=== PATIENT | female | born 1945 | race Caucasian/White ===

== ENCOUNTER 2019-07-08 05:44 | Inpatient (IN) | payer OTHER ==
[2019-06-29 17:33] VITALS: BMI 21.0
[~2019-07-08 05:44] MED LIST: oxyCODONE HCL 10 MG SUSTAINED ACTING TABLET PO ONE
[2019-07-08] MEDS ORDERED: MIDAZOLAM HCL 2 MG/2 ML SINGLE DOSE VIAL ONE ×2 (07:03→07:06)
[2019-07-08] MEDS ORDERED: BUPIVACAINE LIPOSOME/PF (EXPAREL) 266 MG/20 ML VIAL ONE (07:03)
[2019-07-08] MEDS ORDERED: oxyCODONE HCL 10 MG SUSTAINED ACTING TABLET ONE (07:04)
[2019-07-08] MEDS ORDERED: ePHEDrine SULFATE 50 MG/1 ML AMPULE ONE (07:05)
[2019-07-08] MEDS ORDERED: PROPOFOL 20 ML ONE ×4 (07:06→09:17)
[2019-07-08] MEDS ORDERED: ROCURONIUM BROMIDE 50 MG/5 ML SYRINGE ONE (07:06)
[2019-07-08] MEDS ORDERED: SUCCINYLCHOLINE CHLORIDE 200 MG/10 ML SYRINGE ONE (07:06)
[2019-07-08] MEDS ORDERED: ONDANSETRON 4 MG/2 ML VIAL ONE (07:07)
[2019-07-08] MEDS ORDERED: PHENYLEPHRINE HCL 10 MG/1 ML SINGLE DOSE VIAL ONE (07:07)
[2019-07-08] MEDS ORDERED: DEXAMETHASONE SOD PHOSPHATE 4 MG/1 ML VIAL ONE (07:07)
[2019-07-08] MEDS ORDERED: LIDOCAINE HCL/PF 2% SDV 5ML VIAL ONE (07:07)
[2019-07-08] MEDS ORDERED: ceFAZolin SODIUM 1 GM VIAL ONE (07:07)
[2019-07-08] MEDS ORDERED: VANCOMYCIN 1,000 MG VIAL (RESTRICTED TO ID ONLY) ONE (07:07)
[2019-07-08] MEDS ORDERED: SODIUM CHLORIDE 0.9% P/F 10 ML VIAL IJ ONE (07:09)
--- NOTE | 2019-07-08 07:39 | HP ---
History & Physical Update - History History: No Change - Physical Physical: No Change - Assessment Assessment: No Change - Plan Plan: No Change
[2019-07-08] MEDS ORDERED: VANCOMYCIN 750 MG in DEXTROSE 5%-WATER - 250 ML IVPB ONE (08:00)
[2019-07-08] MEDS ORDERED: CEFAZOLIN 1 GM in DEXTROSE 5%-WATER - 100 ML IVPB ONE (08:00)
[2019-07-08] MEDS ORDERED: TRANEXAMIC ACID 1000 MG/10 ML VIAL IVPUSH ONE (08:00)
[2019-07-08] MEDS ORDERED: ceFAZolin SODIUM 1 GM VIAL IM ONE (08:43)
[2019-07-08] MEDS ORDERED: traMADol HCL 50 MG TABLET PO PRN (08:51)
[2019-07-08] MEDS ORDERED: HYDROmorphone HCL 2 MG TABLET PO PRN (08:52)
[2019-07-08] MEDS ORDERED: ACETAMINOPHEN 325 MG TABLET (FP) PO SCH (09:00)
[2019-07-08] MEDS ORDERED: BENZOIN/ALOE VERA/STORAX/TOLU 58 ML BOTTLE ONE (10:30)
[2019-07-08] MEDS ORDERED: MAGNESIUM HYDROX 2400MG/30ML ORAL SUSPENSION 30 ML CUP PO PRN (10:57)
[2019-07-08] MEDS ORDERED: MAG HYDROX/AL HYDROX/SIMETH 30 ML UNIT-DOSE CUP PO PRN (10:57)
[2019-07-08] MEDS ORDERED: LACTATED RINGERS SOLUTION 1,000 ML IV SCH (11:00)
--- NOTE | 2019-07-08 11:05 | OP ---
Operative Note - Note: Operative Date: 07/08/19 Pre-Operative Diagnosis: left knee osteoarthritis Operation: s/p Left total knee replacement Surgeon: Rashi Guillen Band Splitter: Pamela Mora Anesthesiologist/RAIL OPERATIONS CONTROLLER: Kartik Tafoya Anesthesia: Spinal Estimated Blood Loss (mls): 50 Fluid Volume Replaced (mls): 1,300 Operative Report Dictated: Yes
[2019-07-08] MEDS ORDERED: ACETAMINOPHEN 325 MG TABLET (FP) ONE (12:00)
--- NOTE | 2019-07-08 12:22 | HP ---
HISTORY OF PRESENT ILLNESS: 74 year-old female with a PMH significant for HTN, HLD, mild intermittent asthma /COPD, lung cancer s/p RUL lobectomy, sarcoidosis, DDD, and left knee osteoarthritis s/p left total knee replacement on 07/08/[address] Rashi Guillen. PAST MEDICAL HISTORY: Hypertension Hyperlipidemia Mild intermittent asthma COPD Lung cancer Sarcoidosis Degenerative disc disease, cervical, lumbar Spinal stenosis, lumbar Depression/anxiety PAST SURGICAL HISTORY: RUL lobectomy 2013 Social History: Smoking: former Alcohol: no Drugs: no Allergies No Known Drug Allergies Allergy (Verified 07/08/19 06:45) HOME MEDICATIONS: Home Medications Medication Instructions Recorded Escitalopram Oxalate [Lexapro -] 20 mg PO DAILY 06/29/19 Mometasone Furoate 34 gm NS DAILY 06/29/19 Multivit-Min/FA/Lycopen/Lutein 1 each PO DAILY 06/29/19 [Centrum Silver Tablet] Omeprazole 20 mg PO DAILY 06/29/19 Rosuvastatin Calcium [Crestor] 20 mg PO HS 06/29/19 REVIEW OF SYSTEMS CONSTITUTIONAL: Absent: fever, chills, diaphoresis, generalized weakness, malaise, loss of appetite, weight change HEENT: Absent: rhinorrhea, nasal congestion, throat pain, throat swelling, difficulty swallowing, mouth swelling, ear pain, eye pain, visual changes CARDIOVASCULAR: Absent: chest pain, syncope, palpitations, irregular heart rate, lightheadedness , peripheral edema RESPIRATORY: Absent: cough, shortness of breath, dyspnea with exertion, orthopnea, wheezing, stridor, hemoptysis GASTROINTESTINAL: Absent: abdominal pain, abdominal distension, nausea, vomiting, diarrhea, constipation, melena, hematochezia GENITOURINARY: Absent: dysuria, frequency, urgency, hesitancy, hematuria, flank pain, genital pain MUSCULOSKELETAL: Absent: myalgia, arthralgia, joint swelling, back pain, neck pain SKIN: Absent: rash, itching, pallor HEMATOLOGIC/IMMUNOLOGIC: Absent: easy bleeding, easy bruising, lymphadenopathy, frequent infections ENDOCRINE: Absent: unexplained weight gain, unexplained weight loss, heat intolerance, cold intolerance NEUROLOGIC: Absent: headache, focal weakness or paresthesias, dizziness, unsteady gait, seizure, mental status changes, bladder or bowel incontinence PSYCHIATRIC: Absent: anxiety, depression, suicidal or homicidal ideation, hallucinations. PHYSICAL EXAMINATION Vital Signs - 24 hr 07/08/19 07/08/19 07/08/19 06:30 11:15 11:20 Temperature 98.1 F 97.5 F L Pulse Rate 56 L 58 L 60 Respiratory 18 18 14 Rate Blood Pressure 139/66 137/53 L 135/49 L O2 Sat by Pulse 97 100 100 Oximetry (%) 07/08/19 07/08/19 07/08/19 11:25 11:30 11:45 Temperature 97.5 F L Pulse Rate 56 L 56 L 55 L Respiratory 14 14 13 Rate Blood Pressure 134/48 L 134/48 L 144/48 L O2 Sat by Pulse 100 100 100 Oximetry (%) 07/08/19 07/08/19 12:00 12:10 Temperature Pulse Rate 56 L 55 L Respiratory 13 13 Rate Blood Pressure 143/76 144/48 L O2 Sat by Pulse 100 100 Oximetry (%) GENERAL: Awake, alert, and fully oriented, in no acute distress. HEAD: Normal with no signs of trauma. EYES: Pupils equal, round and reactive to light, extraocular movements intact, sclera anicteric, conjunctiva clear. No lid lag. EARS, NOSE, THROAT: Ears normal, nares patent, oropharynx clear without exudates. Moist mucous membranes. NECK: Normal range of motion, supple without lymphadenopathy, JVD, or masses. LUNGS: Breath sounds equal, clear to auscultation bilaterally. No wheezes, and no crackles. No accessory muscle use. HEART: Regular rate and rhythm, normal S1 and S2 without murmur, rub or gallop. ABDOMEN: Soft, nontender, not distended, normoactive bowel sounds, no guarding, no rebound, no masses. No hepatomegaly or splenomegaly. MUSCULOSKELETAL: Normal range of motion at all joints. No bony deformities or tenderness. No CVA tenderness. UPPER EXTREMITIES: 2+ pulses, warm, well-perfused. No cyanosis. No clubbing. No peripheral edema. LEFT LOWER EXTREMITY: surgical dressing c/d/i; leg immobilized; SCDs, TEDs, ice terence; can flex/extend toes, sensory intact NEUROLOGICAL: Cranial nerves II-XII intact. Normal speech. ASSESSMENT/PLAN 74 year-old female with a PMH significant for HTN, HLD, mild intermittent asthma /COPD, lung cancer s/p RUL lobectomy, sarcoidosis, DDD, and left knee osteoarthritis s/p left total knee replacement on 07/08/[address] Rashi Guillen. Left total knee replacement --POD #0 --perioperative antibiotics per surgery --pain management per surgery --ASA 81mg BID --protonix --bowel regimen --incentive spirometry --Hemovac drain, monitor output Hypertension --not on anti-hypertensives Hyperlipidemia --continue rosuvastatin Mild intermittent asthma COPD Lung cancer s/p RUL lobectomy --stable, no acute issues --not on pulmonary medication at home --duonebs PRN Sarcoidosis --no acute issues FEN Fluids: LR@125mL/hr Electrolytes: replete as indicated Nutrition: regular diet DVT prophylaxis: OOB, ambulation, SCDs, TEDs, ASA 81mg BID Physical therapy Dispo: continues to require inpatient care. Full code. Visit type - Emergency Visit Emergency Visit: No - New Patient This patient is new to me today: Yes Date on this admission: 07/20/19 - Critical Care Critical Care patient: No
[2019-07-08] MEDS ORDERED: HYDROmorphone HCL CARPU-JECT 1 MG/1 ML DISP.SYRIN ONE (15:18)
[2019-07-08] MEDS ORDERED: ALBUTEROL SO4 2.5/IPRATROPIUM 0.5 INH SOL 3 ML VIAL.NEB. NEB PRN (17:52)
[2019-07-08] MEDS: ACETAMINOPHEN 325 MG TABLET (FP) PO SCH (18:12)
[2019-07-08] MEDS: CEFAZOLIN 1 GM/D5W 1 GM/50 ML BAG IVPB SCH (18:13)
[2019-07-08] MEDS ORDERED: ACETAMINOPHEN 1000 MG/100 ML VIAL (NON FORMULARY) IVPB ONE (20:11)
[2019-07-08] MEDS ORDERED: KETOROLAC TROMETHAMINE 30 MG/1 ML VIAL IVPUSH ONE (20:11)
[2019-07-08] MEDS: SENNOSIDES/DOCUSATE COMBO (SENNA PLUS) TABLET (UD) PO SCH (21:14)
[2019-07-08] MEDS: DOCUSATE SODIUM 100 MG CAPSULE (FP) PO SCH (21:14)
[2019-07-08] MEDS: ROSUVASTATIN CA 20 MG TABLET (FP) PO SCH (21:14)
[2019-07-08] MEDS: ASPIRIN 81 MG CHEWABLE TABLETS PO SCH (21:14)
[2019-07-09] MEDS: CEFAZOLIN 1 GM/D5W 1 GM/50 ML BAG IVPB SCH (02:30)
[2019-07-09] MEDS: ACETAMINOPHEN 325 MG TABLET (FP) PO SCH ×2 (06:04)
[2019-07-09 07:34] LABS: HEMATOCRIT 33.5 % (32.4-45.2); MCH 29.1 pg (25.7-33.7); MCHC 32.8 g/dl (32.0-36.0); MEAN CELL VOLUME 88.7 fl (80-96); MEAN PLT VOLUME 9.6 fl (7.5-11.1); PLATELET COUNT 219 K/MM3 (134-434); RBC 3.77 M/mm3 (3.60-5.2); WHITE BLOOD COUNT 9.3 K/mm3 (4.0-10.8)
[2019-07-09 07:40] LABS: CALCIUM 8.4 mg/dl (8.5-10); CREATININE 0.9 mg/dl (0.55-1.3); MAGNESIUM 1.7 mg/dL (1.8-2.4); POTASSIUM 4.2 mmol/L (3.5-5.1)
[2019-07-09] MEDS ORDERED: HYDROmorphone HCL 2 MG TABLET PO PRN (07:59)
[2019-07-09] MEDS ORDERED: traMADol HCL 50 MG TABLET PO PRN (08:00)
[2019-07-09] MEDS ORDERED: KETOROLAC TROMETHAMINE 15 MG/ML VIAL IVPUSH PRN (08:00)
[2019-07-09] MEDS: ONDANSETRON 4 MG/2 ML VIAL IVPUSH PRN ×2 (08:22→13:57)
--- NOTE | 2019-07-09 08:27 | PN ---
Physical Exam: SUBJECTIVE: Patient seen and examined OBJECTIVE: Vital Signs Period Temp Pulse Resp BP Sys/Díaz Pulse Ox Last 24 Hr 97.5 F-98.9 F 55-78 13-19 110-150/48-76 95-100 GENERAL: Lethagic, somnolent but arousable LUNGS: Breath sounds equal, clear to auscultation bilaterally. No wheezes, and no crackles. No accessory muscle use. HEART: Regular rate and rhythm, normal S1 and S2 ABDOMEN: Soft, nontender, not distended UPPER EXTREMITIES: 2+ pulses, warm, well-perfused. No cyanosis. No clubbing. No peripheral edema. LEFT LOWER EXTREMITY: surgical dressing c/d/i; leg immobilized; SCDs, TEDs, ice terence; can flex/extend toes, sensory intact NEUROLOGICAL: Cranial nerves II-XII intact. Normal speech. Laboratory Results - last 24 hr 07/09/19 07/09/19 06:36 06:36 WBC 9.3 RBC 3.77 Hgb 11.0 Hct 33.5 MCV 88.7 MCH 29.1 MCHC 32.8 RDW 14.0 Plt Count 219 MPV 9.6 Sodium 135 L Potassium 4.2 Chloride 102 Carbon Dioxide 25 Anion Gap 8 BUN 12.0 Creatinine 0.9 Est GFR (CKD-EPI)AfAm 73.00 Est GFR (CKD-EPI)NonAf 62.99 Random Glucose 118 H Calcium 8.4 L Magnesium 1.7 L Active Medications Generic Name Dose Route Start Last Admin Trade Name Freq PRN Reason Stop Dose Admin Acetaminophen 1,000 mg 07/09/19 12:00 Tylenol - PO 07/10/19 11:59 Q6H ZIGGY Al Hydroxide/Mg Hydroxide 30 ml 07/08/19 10:57 Mylanta Oral Suspension - PO Q4H PRN DYSPEPSIA Albuterol/Ipratropium 1 amp 07/08/19 17:52 Duoneb - NEB Q6H PRN SHORTNESS OF BREATH Aspirin 81 mg 07/08/19 22:00 07/08/19 21:14 Asa - PO 81 mg BID ZIGGY Administration Docusate Sodium 100 mg 07/08/19 10:00 07/08/19 21:14 Colace - PO 100 mg BID ZIGGY Administration Escitalopram Oxalate 20 mg 07/09/19 10:00 Lexapro - PO DAILY ZIGGY Fluticasone Propionate 1 spray 07/09/19 10:00 Flonase - NS DAILY [facility] Hydromorphone HCl 2 mg 07/09/19 07:59 Dilaudid - PO Q4H PRN PAIN LEVEL 6-10 Lactated Ringer's 1,000 mls @ 125 mls/hr 07/08/19 09:00 Lactated Ringers Solution IV ASDIR [facility] Ketorolac Tromethamine 15 mg 07/09/19 08:00 Toradol Injection - IVPUSH 07/14/19 09:59 BID PRN PAIN LEVEL 1-5 Magnesium Hydroxide 30 ml 07/08/19 10:57 Milk Of Magnesia - PO PRN PRN CONSTIPATION Multivitamins/Minerals/Vitamin C 1 tab 07/09/19 10:00 Tab-A-Vit - PO DAILY [facility] Ondansetron HCl 4 mg 07/08/19 10:57 07/09/19 08:22 Zofran Injection IVPUSH 4 mg Q6H PRN Administration NAUSEA Pantoprazole Sodium 40 mg 07/09/19 10:00 Protonix - PO DAILY [facility] Rosuvastatin Calcium 20 mg 07/08/19 22:00 07/08/19 21:14 Crestor - PO 20 mg HS [facility] Administration Senna/Docusate Sodium 2 tablet 07/08/19 22:00 07/08/19 21:14 Pericolace - PO 2 tablet BID ZIGGY Administration Tramadol HCl 50 mg 07/09/19 08:00 Ultram - PO Q3H PRN PAIN LEVEL 1-5 ASSESSMENT/PLAN: 74 year-old female with a PMH significant for HTN, HLD, mild intermittent asthma /COPD, lung cancer s/p RUL lobectomy, sarcoidosis, DDD, and left knee osteoarthritis s/p left total knee replacement on 07/08/[address] Rashi Guillen. Left total knee replacement --POD #0 --perioperative antibiotics per surgery --appears to be overmedicated, somnolent, lethargic, nauseous; stop all opiods, Tylenol and ketorolac only for pain --ASA 81mg BID --protonix --bowel regimen --incentive spirometry --Hemovac drain, monitor output Hypertension --not on anti-hypertensives Hyperlipidemia --continue rosuvastatin Mild intermittent asthma COPD Lung cancer s/p RUL lobectomy --stable, no acute issues --not on pulmonary medication at home --duonebs PRN Sarcoidosis --no acute issues FEN Fluids: PO intake adequate Electrolytes: replete as indicated Nutrition: nauseous, vomiting; keep NPO except for meds and ice chips DVT prophylaxis: OOB, ambulation, SCDs, TEDs, ASA 81mg BID Physical therapy Dispo: continues to require inpatient care. Full code. Visit type - Emergency Visit Emergency Visit: No - New Patient This patient is new to me today: No - Critical Care Critical Care patient: No
--- NOTE | 2019-07-09 08:58 | OP ---
DATE OF OPERATION: DATE OF DICTATION: 07/08/2019 SURGEON: Rashi Guillen MD IMPOSER: MITUL Titus PREOPERATIVE DIAGNOSIS: Tricompartmental with fixed valgus osteoarthritis, left knee. POSTOPERATIVE DIAGNOSIS: Tricompartmental with fixed valgus osteoarthritis, left knee. OPERATION PERFORMED: Left posterior-stabilized cemented total knee replacement ([place]). ANESTHESIA: Conscious sedation with spinal anesthesia as well as a peripheral nerve block. ANTIBIOTICS GIVEN: Ancef 2 g; at the end of the procedure, another gram of Ancef was given. DESCRIPTION OF PROCEDURE: The patient was correctly identified and brought to the operating room. A time-out was called. The patient was placed supine on the operating table. The left lower extremity was prepped and draped in the routine manner with Betadine scrub solution, wiped off with alcohol, and DuraPrep applied. A midline incision was utilized. Dissection was taken through the skin and subcutaneous tissues to the fascia. The fascia was opening by opening the epimysium of the vastus medialis, creating a plane between the vastus medialis all the way down to the linea aspera medially. Incision along the proximal tibia was performed using a Bovie and subperiosteal dissection of the proximal tibia performed to expose the entire medial side of the soft tissue/retinaculum, freeing the vastus medialis appropriately. This enabled a plane to be developed between the muscle and the bone above the suprapatellar pouch. The suprapatellar pouch was incised, and the soft tissue on the surface of the distal femur was resected using a Bovie. The patella was laterally mobilized, not capsized but subluxed. This gave easy access to knee completely. The noticeable tricompartmental osteoarthritis was readily noted. Using the [email or web address] instrumentation, the appropriate cuts were as follows: Femur with the appropriate jig system measured size 2. Use of the tibial extramedullary alignment jigs enabled me to cut the base of the tibia for a size 3 baseplate, and an additional 12 x 50 stem applied to the actual manufactured stem accordingly. The patella was cut from Whitesides line from the patellar ligament to quadriceps tendon to receive a size 27-mm polyethylene button. In performing all the appropriate jig cuts, the kinematics were restored, with a flexion/extension gap tat was even at about 9 mm. Tension in extension and flexion were normal at 9 mm. Trial components were utilized to assess the appropriate seating of implants. The mechanical axis was restored. The knee was brought into full extension with a 9-mm polyethylene liner, and the entire tibial surface was covered. The femoral components seated enabled excellent articulation with appropriate patellar tracking and noted to be normal. We were happy with this in terms of alignment and kinematics. Went on to lavage the bone bed with pulse lavage and cemented using 1-stage. Once all cement had cured, all extraneous cement was removed. The knee was placed through a range of movement, which was normal, that is 0 to 120 to 130 degrees and complete stability in the coronal and sagittal planes, as well as a negative shock test. Drains: A 1/8-inch Hemovac was brought out through the subvastus bed. The subcutaneous tissues with the retinaculum in separate layers were closed with 1 Vicryl, and the skin with 3-0 Monocryl and Steri-Strips. The operation went well. The patient had no complications. Postop x-rays were excellent. The patient was extricated out of the operating complex with no problems. MD LAURIE Bazan/[id number]
--- NOTE | 2019-07-09 09:19 | PN ---
Progress Note (short form) - Note Progress Note: POD#1 Pt states that she is having some nausea this am. NO CP or SOB. Had pain overnight and was treated with dilaudid po. The drain was leaking overnight. Vital Signs Period Temp Pulse Resp BP Sys/Díaz Pulse Ox Last 24 Hr 97.5 F-98.9 F 55-78 13-19 110-150/48-76 95-100 Hemovac:40/60ml serosangrenous GEN: A&0x3, NAD CV: RRR Lungs: CTA b/l Left knee: dressing taken down and blood at the hemovac insertion site. No evidence of a hematoma and thigh/calf is soft. Hemovac removed with the tip intact, no further bleeding noted. 4x4 gauze and tegaderm applied and geovany wrap. LE: 5/5 dorsi/plantar flexion b/l. calf soft and no tenderness b/l. TEDs/Scds in place. CBC, BMP 02/06/20 06:36 02/06/20 06:36 A/P: 74 yo female s/p L TRK, POD#1 Changed pain regimen. Pt with nausea. increased stadning tylenol/added toradol prn. Ultram and dilaudid po as needed Continue DVT ppx OOB and ambuatle with PT DVT ppx with aspiring 81mg bid, ZINA/SCDs Zofran and diet as tolerated D/w Dr. Guillen
[2019-07-09] MEDS: PANTOPRAZOLE 40 MG TABLET PO SCH (09:47)
[2019-07-09] MEDS: MULTIVITAMINS (DAILY MVI) TABLET (FP) PO SCH (09:47)
[2019-07-09] MEDS: ESCITALOPRAM OXALATE 20 MG TABLET PO SCH ×2 (09:48→13:13)
[2019-07-09] MEDS: ASPIRIN 81 MG CHEWABLE TABLETS PO SCH ×2 (09:48→22:00)
[2019-07-09] MEDS: SENNOSIDES/DOCUSATE COMBO (SENNA PLUS) TABLET (UD) PO SCH ×2 (09:48→21:59)
[2019-07-09] MEDS: DOCUSATE SODIUM 100 MG CAPSULE (FP) PO SCH ×2 (09:48→21:59)
[2019-07-09] MEDS: FLUTICASONE PROP 0.05% 16 GM NASAL SPRAY NS SCH (09:49)
[2019-07-09] MEDS ORDERED: PT OWN MED DRAWER 7, Y5N ONE (09:51)
[2019-07-09] MEDS ORDERED: MOMETASONE FUROATE NS SCH (10:00)
[2019-07-09] MEDS: LACTATED RINGERS SOLUTION 1,000 ML IV SCH (10:00)
--- NOTE | 2019-07-09 11:27 | PN ---
Progress Note (short form) - Note Progress Note: POD #1 s/p L TKR under spinal anesthesia with adductor canal/selective tibial nerve blocks. Doing well, had some nausea overnight with pain Rx, now controlled. Patient comfortable and sleepy. All questions answered.
[2019-07-09] MEDS: ACETAMINOPHEN 500 MG TABLET (FP) PO SCH ×2 (11:53→13:46)
[2019-07-09] MEDS ORDERED: ACETAMINOPHEN 325 MG TABLET (FP) PO SCH (12:00)
[2019-07-09] MEDS ORDERED: SODIUM CHLORIDE 500 ML IV STA ×2 (12:24→12:58)
[2019-07-09] MEDS ORDERED: MAGNESIUM SULF 50% (8.12 MEQ/2 ML-1 GM VIAL) IVPB ONE (13:00)
[2019-07-09] MEDS ORDERED: MAGNESIUM SULFATE IN WATER 2 GM/50 ML IVPB IVPB ONE (13:15)
[2019-07-09] MEDS: ACETAMINOPHEN 1000 MG/100 ML VIAL (NON FORMULARY) IVPB SCH ×2 (15:51→22:00)
[2019-07-09] MEDS: ROSUVASTATIN CA 20 MG TABLET (FP) PO SCH (22:00)
[2019-07-10] MEDS: ACETAMINOPHEN 1000 MG/100 ML VIAL (NON FORMULARY) IVPB SCH ×2 (03:07→08:48)
[2019-07-10] MEDS: ONDANSETRON 4 MG/2 ML VIAL IVPUSH PRN (04:28)
--- NOTE | 2019-07-10 05:51 | SURG ---
Surgery Merchandise For Resale Purchasing Agent Note Merchandise For Res[employer] Purchasing Agent: Pamela Mora PA-C Date of Service: 07/10/19 Diagnosis: left knee osteoarthritis Procedure: s/p Left total knee replacement I was present for the entirety of the operative procedure. For further detail, please refer to operative report. Visit type - Case Type Case Type: Scheduled - Emergency Emergency Visit: No - New patient This patient is new to me today: Yes Date on this admission: 07/10/19
[2019-07-10 06:38] VITALS: TEMP 98.4
[2019-07-10] MEDS: DOCUSATE SODIUM 100 MG CAPSULE (FP) PO SCH ×2 (07:28→09:28)
[2019-07-10] MEDS: ACETAMINOPHEN 325 MG TABLET (FP) PO SCH (07:28)
[2019-07-10] MEDS: LACTATED RINGERS SOLUTION 1,000 ML IV SCH (07:28)
[2019-07-10 07:32] LABS: HEMOGLOBIN 10.1 GM/dl (10.7-15.3); MCHC 32.5 g/dl (32.0-36.0); MEAN CELL VOLUME 89.4 fl (80-96); MEAN PLT VOLUME 9.1 fl (7.5-11.1); PLATELET COUNT 222 K/MM3 (134-434); RBC 3.47 M/mm3 (3.60-5.2); RDW 13.8 % (11.6-15.6); WHITE BLOOD COUNT 12.9 K/mm3 (4.0-10.8)
--- NOTE | 2019-07-10 07:32 | PN ---
Progress Note (short form) - Note Progress Note: ORTHOPAEDIC SURGERY POD #2 No acue events per RN notes. Alert. Sitting in chair at bedside with legs in extension. Ice pack in place. C/o incisional pain Last Vital Signs Temp Pulse Resp BP Pulse Ox 98.4 F 93 H 18 138/59 L 100 07/10/19 05:00 07/10/19 05:00 07/10/19 05:00 07/10/19 05:00 07/10/19 05:00 CBC, BMP 07/10/19 07:00 07/09/19 06:36 GEN: A&0x3, NAD CV: RRR Lungs: CTA b/l Left knee: dressing c/d/i. No evidence of a hematoma. All compartments soft. SCDs/TEDs bilat. 5/5 dorsi/plantar flexion b/l. Problem List - Problems (1) Status post total left knee replacement using cement Assessment/Plan: POD #1 s/p Left TKR Continue DVT ppx OOB and ambuatle with PT DVT ppx with ASA 81mg bid x 6 weeks, ZINA/SCDs Cleared for DC home today Above plan discussed with Dr. Rashi Guillen and agrees. Code(s): Z96.652 - PRESENCE OF LEFT ARTIFICIAL KNEE JOINT
--- NOTE | 2019-07-10 09:07 | DS ---
"Physical Exam: SUBJECTIVE: Patient seen and examined. Off all narcotics for 24 hours, much more alert. Pain is well-controlled on Tyelenol. Nausea, vomiting resolved. OBJECTIVE: Vital Signs Period Temp Pulse Resp BP Sys/Díaz Pulse Ox Last 24 Hr 97.4 F-98.4 F 63-93 15-18 86-138/37-59 99-100 PHYSICAL EXAM GENERAL: A&Ox3 LUNGS: Breath sounds equal, clear to auscultation bilaterally. No wheezes, and no crackles. No accessory muscle use. HEART: Regular rate and rhythm, normal S1 and S2 ABDOMEN: Soft, nontender, not distended UPPER EXTREMITIES: 2+ pulses, warm, well-perfused. No cyanosis. No clubbing. No peripheral edema. LEFT LOWER EXTREMITY: surgical dressing c/d/i; SCDs, TEDs, can flex/extend toes , sensory intact NEUROLOGICAL: Cranial nerves II-XII intact. Normal speech. LABS Laboratory Results - last 24 hr 07/10/19 07:00 WBC 12.9 H RBC 3.47 L Hgb 10.1 L Hct 31.0 L MCV 89.4 MCH 29.0 MCHC 32.5 RDW 13.8 Plt Count 222 MPV 9.1 HOSPITAL COURSE: Date of Admission:07/08/19 Date of Discharge: 07/10/19 74 year-old female with a PMH significant for HTN, HLD, mild intermittent asthma /COPD, lung cancer s/p RUL lobectomy, sarcoidosis, DDD, and left knee osteoarthritis s/p left total knee replacement on 07/08/[address] Rashi Guillen. Left total knee replacement --post-operative course remarkable for oversedation, nausea, and vomiting from opiods; they were stopped and patient improved, pain was well- managed with Tylenol and ketorolac; patient advised at time of discharge to avoid further opiod use --perioperative antibiotics were completed --ASA 81mg BID x 6 weeks Hypertension --BP was stable --not on anti-hypertensives Hyperlipidemia --continued rosuvastatin Mild intermittent asthma COPD Lung cancer s/p RUL lobectomy --stable, no acute issues --not on pulmonary medication at home --duonebs PRN Sarcoidosis --no acute issues ISTOP The Drug Utilization Report below displays all of the controlled substance prescriptions, if any, that your patient has filled in the last twelve months. The information displayed on this report is compiled from pharmacy submissions to the Department, and accurately reflects the information as submitted by the pharmacies. This report was requested by: Aileen Trinidad | Reference #: [id number] Others' Prescriptions Patient Name: Jade Jeter Date: 1945 Address: [address] [place] [address] Sex: Female Rx Written Rx Dispensed Drug Quantity Days Supply Prescriber Name 06/15/2019 06/17/2019 hydrocodone-ibuprofen 7.5-200 60 30 Rashi Guillen MS, MD 04/14/2019 04/15/2019 clonazepam 1 mg tablet 60 30 Avanzato, Martell Soriano DO 02/06/2019 02/11/2019 clonazepam 1 mg tablet 60 30 Avanzato, Martell R 01/02/2019 01/02/2019 clonazepam 1 mg tablet 60 30 Avanzato, Martell R 12/11/2018 12/11/2018 hydrocodone-acetaminophen 5-325 mg tablet 30 30 Rashi Guillen MS, MD 12/01/2018 12/03/2018 clonazepam 1 mg tablet 60 30 Avanzato, Martell R 10/08/2018 10/08/2018 hydrocodone-acetaminophen 5-325 mg tablet 30 30 Jamilah Diaz (RPA-C) 10/07/2018 10/07/2018 clonazepam 1 mg tablet 60 30 Avanzato, Martell R DO 08/27/2018 08/28/2018 clonazepam 1 mg tablet 60 30 Avanzato, Martell R DO 07/24/2018 07/25/2018 clonazepam 1 mg tablet 60 30 Avanzato, Martell R Minutes to complete discharge: 35 Discharge Summary Problems reviewed: Yes Reason For Visit: BILATERAL PRIMARY OSTEOARTHRITIS OF KNEE Condition: Improved - Instructions Diet, Activity, Other Instructions: Dr. Guillen Discharge Instructions for Knee Replacement Post Operative Instructions Physical activity Physical Therapist will come to your home for the first 5 days. You will be set up with outpatient PT at your first post-operative visit. Use assistive devices for ambulation at all times. Weight bearing as tolerated on your surgical side. Do not put pillow under knee. May put pillow under heel. Wound care Leave your surgical dressing in place. Do not change the dressing until seen by your surgeon in the office. No baths or showers. Do not submerge your incision. Do not apply any ointments or lotions to your incision. Please call the office if your dressing is soiled/dirty or is falling off. Apply Graduated Compression Stockings (TEDS) to both lower extremities - remove daily for hygiene ONLY. Diet There are no dietary restrictions. Eat healthy, high-fiber foods. Drink 6 to 8 glasses of liquid each day. This will assist in keeping your bowels are regular. Pain management Any pain prescription medication ordered should be taken as prescribed for moderate to severe pain. Do not take additional Tylenol while taking Percocet. Take Aspirin 81 mg two times a day for a total of 6 weeks to prevent blood clots. Call Dr. Guillen for any of the following: Severe pain not relieved by medication Fever of 101 or higher Excessive bleeding or drainage on dressing Inability to urinate If you experience chest pain or shortness of breath, please seek emergency care immediately. Please call the office at to confirm your post-op appointment for the week following surgery. This report was requested by: Pamela Mora | Reference #: [id number] 06/15/2019 06/17/2019 hydrocodone-ibuprofen 7.5-200 60 30 Rashi Guillen MS, MD Referrals: Rashi Guillen MD [Staff Physician] - Disposition: HOME - Home Medications Comprehensive Discharge Medication List: Ambulatory Orders Escitalopram Oxalate [Lexapro -] 20 mg PO DAILY 06/29/19 Mometasone Furoate 34 gm NS DAILY 06/29/19 Multivit-Min/FA/Lycopen/Lutein [Centrum Silver Tablet] 1 each PO DAILY 06/29/19 Omeprazole 20 mg PO DAILY 06/29/19 Rosuvastatin Calcium [Crestor] 20 mg PO HS 06/29/19 Prescription Drug Monitoring Program (I-STOP) results: I-STOP reviewed and no issues identified This patient is new to me today: No Emergency Visit: Yes ED Registration Date: 07/08/19 Care time: The patient presented to the Emergency Department on the above date and was hospitalized for further evaluation of their emergent condition. Critical Care patient: No - Discharge Referral Referred to [facility] Med P.C.: No"
[2019-07-10] MEDS: ASPIRIN 81 MG CHEWABLE TABLETS PO SCH (09:28)
[2019-07-10] MEDS: SENNOSIDES/DOCUSATE COMBO (SENNA PLUS) TABLET (UD) PO SCH (09:28)
[2019-07-10] MEDS: PANTOPRAZOLE 40 MG TABLET PO SCH (09:28)
[2019-07-10] MEDS: MULTIVITAMINS (DAILY MVI) TABLET (FP) PO SCH (09:28)
[2019-07-10] MEDS: ESCITALOPRAM OXALATE 20 MG TABLET PO SCH (09:28)
[2019-07-10] MEDS: FLUTICASONE PROP 0.05% 16 GM NASAL SPRAY NS SCH (09:29)
[2019-07-10 10:58] VITALS: BP 103/46; PULSE 78
[2019-07-10] MEDS ORDERED: PT OWN MED DRAWER 7, Y5N ONE (11:11)
--- NOTE | 2019-07-10 14:48 | PATH ---
Surgical Pathology Report Patient Name: UNIQUE VEGA Med. Rec. #: [id number] /Age/Gender: 1945 (Age: 74) / F Account: [id number] Location: [facility] MED-SURG Taken: 07/08/2019 Received: 07/08/2019 Reported: 07/10/2019 Physicians: Rashi Guillen M.D. Specimen(s) Received LEFT KNEE BONES Clinical History Left knee osteoarthritis Final Diagnosis BONE, KNEE, LEFT, TOTAL KNEE REPLACEMENT: BONE WITH DEGENERATIVE JOINT DISEASE, FIBROADIPOSE TISSUE, AND REACTIVE SYNOVIUM. Electronically Signed Pinky Holland M.D. Gross Description Received in formalin labeled "left knee bones," is an 11.5 x 10.0 x 1.5 cm aggregate of multiple maldonado portions of bone and soft tissue, consistent with knee bones. There is a 2.0 cm in greatest dimension area of eburnation present. The remaining articular surfaces are maldonado-yellow and focally granular. The underlying trabecular bone is yellow and hard. Student Assistant sections are submitted in one cassette, following decalcification. /07/09/[address] [facility]07/09/2019
== END 2019-07-10 13:45 | disposition home or self-care (01) | DRG 470 ==
LOC: FASU 05:44 → FM/S 05:45 → EDSTATUS 08:00 → FM/S 07-09 16:59
PROVIDERS: ADMIT Orthopaedic Surgery Orthopaedic Surgery of the Spine; ATTEND Nurse Practitioner Acute Care
PROC: 0SRD0J9 Replacement of Left Knee Joint with Synthetic Substitute, Cemented, Open Approach (ICD-10-PCS; principal; 2019-07-08 09:12)
DX: M17.12 Unilateral primary osteoarthritis, left knee (principal); I10 Essential (primary) hypertension; E78.5 Hyperlipidemia, unspecified; J45.20 Mild intermittent asthma, uncomplicated; D86.9 Sarcoidosis, unspecified; F32.9 Major depressive disorder, single episode, unspecified; F41.9 Anxiety disorder, unspecified; M48.061 Spinal stenosis, lumbar region without neurogenic claudication; M51.36 Other intervertebral disc degeneration, lumbar region; M50.30 Other cervical disc degeneration, unspecified cervical region
CPT/HCPCS: 36415; 73560-TC-LT-FY; 80048; 83735; 85027; 88304-TC; 88311-TC; 94760; 97116-GP; 97163-GP; J0131

== ENCOUNTER 2020-04-25 04:36 | Inpatient (IN) | payer OTHER ==
[2020-04-22 11:03] VITALS: BMI 19.7
[2020-04-25] MEDS ORDERED: HEPARIN NA (PORCINE) 5,000 UNITS/ML 1ML VIAL ONE (07:12)
[2020-04-25] MEDS ORDERED: THROMBIN (BOVINE) 5,000 UNIT VIAL TP ONE ×2 (07:12→10:14)
[2020-04-25] MEDS ORDERED: BENZOIN/ALOE VERA/STORAX/TOLU 58 ML BOTTLE ONE (07:17)
[2020-04-25] MEDS ORDERED: PROPOFOL 20 ML ONE ×11 (07:32→09:45)
[2020-04-25] MEDS ORDERED: MIDAZOLAM HCL 2 MG/2 ML SINGLE DOSE VIAL ONE (07:33)
[2020-04-25] MEDS ORDERED: SUCCINYLCHOLINE CHLORIDE 200 MG/10 ML SYRINGE ONE (07:33)
[2020-04-25] MEDS ORDERED: ROCURONIUM BROMIDE 50 MG/5 ML SYRINGE ONE (07:33)
[2020-04-25] MEDS ORDERED: LACTATED RINGERS SOLUTION 1,000 ML IV SCH (08:00)
[2020-04-25] MEDS ORDERED: ceFAZolin SODIUM 1 GM VIAL IVPB ONE (08:15)
[2020-04-25] MEDS ORDERED: EPHEDRINE SULFATE/0.9% NACL/PF 50 MG/10 ML SYRINGE NR ONE (08:31)
[2020-04-25] MEDS ORDERED: oxyCODONE HCL 5 MG TABLET PO PRN (11:15)
[2020-04-25] MEDS: LACTATED RINGERS SOLUTION 1,000 ML IV SCH ×2 (13:00→20:38)
[2020-04-25] MEDS: CEFAZOLIN 1 GM/D5W 1 GM/50 ML BAG IVPB SCH ×2 (13:56→20:38)
[2020-04-25] MEDS: oxyCODONE HCL 5 MG TABLET PO PRN ×2 (16:33→21:32)
[2020-04-25] MEDS: ONDANSETRON 4 MG/2 ML VIAL IVPUSH PRN ×2 (16:33→20:37)
[2020-04-25] MEDS: clonazePAM 0.5 MG TABLET PO SCH (21:31)
[2020-04-25] MEDS: ROSUVASTATIN CA 20 MG TABLET (FP) PO SCH (21:31)
[2020-04-25] MEDS ORDERED: DEXAMETHASONE SOD PHOSPHATE 10 MG/1 ML VIAL IVPUSH ONE (23:45)
[2020-04-26] MEDS: CEFAZOLIN 1 GM/D5W 1 GM/50 ML BAG IVPB SCH (01:11)
[2020-04-26] MEDS ORDERED: ACETAMINOPHEN 1000 MG/100 ML VIAL (NON FORMULARY) IVPB ONE (02:44)
[2020-04-26] MEDS: LACTATED RINGERS SOLUTION 1,000 ML IV SCH ×2 (06:10→12:00)
[2020-04-26 07:12] LABS: POTASSIUM 5.1 mmol/L (3.5-5.1)
[2020-04-26 07:15] LABS: ALBUMIN 3.2 g/dl (3.4-5.0); BLOOD UREA NITROGEN 13.2 mg/dL (7-18); CALCIUM 8.4 mg/dL (8.5-10.1); MAGNESIUM 2.2 mg/dL (1.8-2.4)
[2020-04-26 07:18] LABS: PHOSPHOROUS 4.5 mg/dL (2.5-4.9)
[2020-04-26 07:19] LABS: BILIRUBIN,TOTAL 0.3 mg/dL (0.2-1)
[2020-04-26 07:22] LABS: HEMATOCRIT 30.9 % (32.4-45.2); HEMOGLOBIN 9.6 GM/dL (10.7-15.3); MCH 24.1 pg (25.7-33.7); MCHC 31.2 g/dl (32.0-36.0); MEAN CELL VOLUME 77.3 fl (80-96); MEAN PLT VOLUME 10.3 fl (7.5-11.1); PLATELET COUNT 276 K/MM3 (134-434); RDW 18.2 % (11.6-15.6); WHITE BLOOD COUNT 8.2 K/mm3 (4.0-10.0)
[2020-04-26] MEDS: SERTRALINE HCL 50 MG TABLET (FP) PO SCH (09:41)
[2020-04-26] MEDS ORDERED: PATIENT'S OWN MEDICATION (NON-FORMULARY) (Mometasone Furoate [Mometasone Furoate] 17 GM Sp NS SCH (10:00)
[2020-04-26] MEDS ORDERED: ACETAMINOPHEN 1000 MG/100 ML VIAL (NON FORMULARY) IVPB PRN ×2 (12:17→12:35)
[2020-04-26] MEDS: ONDANSETRON 4 MG/2 ML VIAL IVPUSH PRN ×2 (14:56→20:24)
[2020-04-26] MEDS: oxyCODONE HCL 5 MG TABLET PO PRN ×2 (16:19→20:25)
[2020-04-26] MEDS: ROSUVASTATIN CA 20 MG TABLET (FP) PO SCH (23:27)
[2020-04-26] MEDS: clonazePAM 0.5 MG TABLET PO SCH (23:27)
[2020-04-27] MEDS: oxyCODONE HCL 5 MG TABLET PO PRN ×2 (05:36→12:00)
[2020-04-27] MEDS: ONDANSETRON 4 MG/2 ML VIAL IVPUSH PRN ×2 (05:36→11:58)
[2020-04-27 06:44] LABS: BASO % 0.4 % (0-2.0); EOS % 0.9 % (0-4.5); HEMATOCRIT 30.9 % (32.4-45.2); LYMPH % 21.5 % (8-40); MCH 27.7 pg (25.7-33.7); MCHC 32.4 g/dl (32.0-36.0); MEAN CELL VOLUME 85.5 fl (80-96); MEAN PLT VOLUME 9.2 fl (7.5-11.1); MONO % 9.7 % (3.8-10.2); NEUT % 67.5 % (42.8-82.8); PLATELET COUNT 256 K/MM3 (134-434); RBC 3.62 M/mm3 (3.60-5.2); RDW 16.1 % (11.6-15.6)
[2020-04-27 07:00] LABS: POTASSIUM 4.2 mmol/L (3.5-5.1)
[2020-04-27 07:04] LABS: BLOOD UREA NITROGEN 13.7 mg/dL (7-18); CALCIUM 8.3 mg/dL (8.5-10.1); MAGNESIUM 2.1 mg/dL (1.8-2.4)
[2020-04-27 07:07] LABS: CREATININE 0.8 mg/dL (0.55-1.3)
[2020-04-27 07:08] LABS: PHOSPHOROUS 3.4 mg/dL (2.5-4.9)
[2020-04-27 07:09] LABS: BILIRUBIN,TOTAL 0.5 mg/dL (0.2-1); TOT PROT 5.7 g/dl (6.4-8.2)
[2020-04-27] MEDS: SERTRALINE HCL 50 MG TABLET (FP) PO SCH (10:06)
[2020-04-27 13:08] VITALS: BP 91/32; PULSE 86
[2020-04-27 14:53] VITALS: TEMP 99.3
== END 2020-04-27 17:13 | disposition home or self-care (01) | DRG 473 ==
LOC: J2C 04:36 → JICU 13:40
PROVIDERS: ADMIT Orthopaedic Surgery Orthopaedic Surgery of the Spine; ATTEND Orthopaedic Surgery Orthopaedic Surgery of the Spine
PROC: 0RB30ZZ Excision of Cervical Vertebral Disc, Open Approach (ICD-10-PCS; 2020-04-25)
PROC: 0RT30ZZ Resection of Cervical Vertebral Disc, Open Approach (ICD-10-PCS; 2020-04-25)
PROC: 0PS304Z Reposition Cervical Vertebra with Internal Fixation Device, Open Approach (ICD-10-PCS; 2020-04-25)
PROC: B01BZZZ Fluoroscopy of Spinal Cord (ICD-10-PCS; 2020-04-25)
PROC: 0RG20A0 Fusion of 2 or more Cervical Vertebral Joints with Interbody Fusion Device, Anterior Approach, Anterior Column, Open Approach (ICD-10-PCS; principal; 2020-04-25 08:00)
DX: M47.22 Other spondylosis with radiculopathy, cervical region (principal); M47.12 Other spondylosis with myelopathy, cervical region; E78.5 Hyperlipidemia, unspecified; Z85.118 Personal history of other malignant neoplasm of bronchus and lung
CPT/HCPCS: 36415; 72050-TC-FY; 76000-TC-FY; 80053; 83735; 84100; 85025; 85027; 86850; 86900; 86901; 88304-TC; 94010; 94760; 97116-GP; 97161-GP; J0131; J1100; J1644